=== PATIENT | female | born 1985 | race Caucasian/White ===

== ENCOUNTER 2020-09-06 09:47 | Emergency (ER) | payer MEDICAID ==
[~2020-09-06] VITALS: Ht 154.9 cm; Wt 59.0 kg
[2020-09-06 09:55] VITALS: BP_SYST 112
[2020-09-06 10:46] LABS: HEMATOCRIT 32.5 % (36-48); HEMOGLOBIN 10.5 g/dL (12.0-16.0); MEAN CORPUSCULAR HEMOGLOBIN 23 pg (27-31); MEAN CORPUSCULAR HGB CONC 32 % (32-36); MEAN CORPUSCULAR VOLUME 72 fL (79.0-98.0); PLATELET COUNT (AUTO) 323 K/uL (130-430); RED BLOOD CELL COUNT(AUTO) 4.51 MIL/uL (4.2-6.2); RED CELL DISTRIBUTION WIDTH 16.5 % (9.0-15.0); WHITE BLOOD COUNT (AUTO) 6.3 K/uL (4.8-10.8)
[2020-09-06 11:30] LABS: BAND % (MANUAL) 0 % (0-6)
[2020-09-06 11:31] LABS: ATYPICAL LYMPHOCYTES % 0 % (0-0); BASOPHILS % (MANUAL) 0 % (0-2); EOSINOPHILS % (MANUAL) 2 % (0-7); LYMPHOCYTES % (MANUAL) 17 % (20-46); MONOCYTES % (MANUAL) 8 % (0-11)
[2020-09-06 12:50] VITALS: BP_SYST 100
== END 2020-09-06 12:50 | disposition home or self-care (01) ==
LOC: SED 09:47
DX: O20.0 Threatened abortion (principal); Z3A.13 13 weeks gestation of pregnancy
CPT/HCPCS: 36415; 76805-TC; 76817; 84702; 85007; 85027; 86900; 86901; 99284

== ENCOUNTER 2020-12-11 18:08 | Emergency (ER) | payer MEDICAID ==
[~2020-12-11] VITALS: Ht 154.9 cm; Wt 65.8 kg
[2020-12-11 18:20] VITALS: BP_SYST 131
[2020-12-11 21:16] VITALS: BP_SYST 131
== END 2020-12-11 21:15 | disposition home or self-care (01) ==
LOC: SED 18:08
DX: S39.012A Strain of muscle, fascia and tendon of lower back, initial encounter (principal); R07.89 Other chest pain; V49.49XA Driver injured in collision with other motor vehicles in traffic accident, initial encounter; Y93.89 Activity, other specified; Y92.89 Other specified places as the place of occurrence of the external cause; Y99.8 Other external cause status
CPT/HCPCS: 71045; 72100-TC; 99284